=== PATIENT | female | born 1995 | race Caucasian/White ===

== ENCOUNTER 2017-08-28 10:28 | Emergency (ER) | payer MEDICAID ==
[~2017-08-28] VITALS: Ht 157.5 cm; Wt 67.4 kg
[2017-08-28] MEDS ORDERED: CLOT12CR TOP (11:05)
[2017-08-28 11:07] VITALS: BP 139/82
== END 2017-08-28 11:11 | disposition home or self-care (01) ==
LOC: ER 10:29
DX: B35.3 Tinea pedis (principal); F15.10 Other stimulant abuse, uncomplicated; Z56.0 Unemployment, unspecified; Z79.899 Other long term (current) drug therapy
CPT/HCPCS: 99282

== ENCOUNTER 2021-01-30 09:32 | Inpatient (IN) | payer MEDICAID ==
[~2021-01-30] VITALS: Ht 157.5 cm; Wt 57.6 kg
[~2021-01-30 09:32] MED LIST: CLOT12CR TOP
[2021-01-30] MEDS ORDERED: loperamide 2mg capsule PO PRN (12:20)
[2021-01-30] MEDS ORDERED: mag hydrox/Alum hydrox/simeth 30ml oral suspension PO PRN (12:20)
[2021-01-30] MEDS ORDERED: magnesium hydroxide 30ml (MOM) UD suspension PO PRN (12:20)
[2021-01-30] MEDS ORDERED: traZODone 50mg tablet PO PRN (12:20)
[2021-01-30] MEDS ORDERED: NICOTINE POLACRILEX 2 MG LOZENGE BC PRN (12:20)
[2021-01-30] MEDS ORDERED: acetaminophen 325mg tablet PO PRN ×2 (12:20)
[2021-01-30 13:29] VITALS: BP 106/66
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
[2021-01-30 19:45] VITALS: BP 130/83
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
[2021-01-31] MEDS: nicotine 21mg patch - 24 hr TD SCH (07:33)
[2021-01-31 08:00] VITALS: BP 121/79
[2021-01-31] MEDS: LORazepam 1 MG tablet PO PRN (08:02)
[2021-01-31 08:11] LABS: HEMOGLOBIN A1C 5.3 % (4.5-6.2)
[2021-01-31 08:15] LABS: CHOL/HDL RATIO 2.6 (0.00-4.99); CHOLESTEROL 128 MG/DL (0-200); HDL CHOLESTEROL 49 MG/DL (35-60); LDL CHOLESTEROL 70 MG/DL (50-100); TRIGLYCERIDES 37 MG/DL (20-135)
--- NOTE | 2021-01-31 14:00 | NUR ---
Concurrent Review with Marybel from [facility]. Marybel from [facility] called and asked question regarded patients admission, patient had not been seen by provider yet. 5150 and intake packet review with Marybel. PRN Ativan 0800 given 01/31/21 ADL's independent with out prompting Hyper Verbal, appears disheveled even after shower. Marybel is new to [facility] and states today and tomorrow will be approved as an initial review, next call should be Tuesday or Tuesday.
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
[2021-01-31 19:14] VITALS: BP 115/64
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
[2021-02-01] MEDS: nicotine 21mg patch - 24 hr TD SCH (08:00)
[2021-02-01] MEDS: LORazepam 1 MG tablet PO PRN ×2 (08:03→08:46)
[2021-02-01 09:12] VITALS: BP 113/72
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
[2021-02-01 19:16] VITALS: BP 129/77
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
[2021-02-02 08:00] VITALS: BP 105/76
[2021-02-02] MEDS: nicotine 21mg patch - 24 hr TD SCH (08:00)
--- NOTE | 2021-02-02 08:55 | NUR ---
DCP: Presenting Issues: Attending PA requesting SS support w/dcp activities. Pt declined linkages for any services upon d/c and will not be d/c-ing with any meds. Interventions: SS met w/pt and engaged her in dcp activities, pt wants to d/c & return to [place], needs transportation, pt decline linkages to any /substances use treatment at this time. SS had t/c w/Angelo DCP from [facility], no appointments will scheduled as pt declined linkages, pt will be picked up between 2&2:20PM. Leora Murillo LCSW Addendum: 02/02/21 at 0858 by Leora Murillo Amended: Links added.
--- NOTE | 2021-02-02 14:24 | NUR ---
Discharge Note: Patient discharged @1400 via county recycling collections driver. Patient was given discharge instructions and all of her property.
--- NOTE | 2021-02-02 14:40 | NUR ---
Pt. attended group today. Todays group was about the difference between Growth Mindset vs. Fixed Mindset. We learned about the differences and then discussed what aspect of developing a growth mindset they wanted to work on. Pt engaged in the discussion to the point where she was over talking others and sharing information that had a delusional quality to it. This Highway Administrative Engineer had to ask her to quiet down and let her know that if she couldn't settle down she would have to leave the group. Pt. would attempt to share about the topic at hand but would usually veer into loose associations and become circumstantial and disorganized. Her behavior was erratic, psychomotor agitation was observed by this Highway Administrative Engineer with various body ticks and strange physical movement. She struggled to say seated, was restless moving around the room and leaving the group and returning. It was evident that others in the group were finding her distracting and it was causing issues in the group. Due to all these issues Pt. struggled to engage in with any insight into the topic. If Pt. is here tomorrow she should not come into the group as she is unable to get full control over herself and her behavior, it a distraction for others who are trying to get some help. Danielle Heredia, BRANDING MACHINE TENDER
== END 2021-02-02 14:00 | disposition home or self-care (01) | DRG 774 ==
LOC: ADULT MH 12:21
PROVIDERS: ADMIT Psychiatry & Neurology Psychiatry; ATTEND Psychiatry & Neurology Psychiatry
DX: F15.159 Other stimulant abuse with stimulant-induced psychotic disorder, unspecified (principal); F14.10 Cocaine abuse, uncomplicated; Z20.822 Contact with and (suspected) exposure to COVID-19; F17.210 Nicotine dependence, cigarettes, uncomplicated; N89.8 Other specified noninflammatory disorders of vagina; F43.10 Post-traumatic stress disorder, unspecified; F32.9 Major depressive disorder, single episode, unspecified; F41.9 Anxiety disorder, unspecified; F90.9 Attention-deficit hyperactivity disorder, unspecified type; Z56.0 Unemployment, unspecified; Z71.6 Tobacco abuse counseling; Z71.51 Drug abuse counseling and surveillance of drug abuser
CPT/HCPCS: 36415; 80061; 83036; 87081